=== PATIENT | female | born 1965 | race Caucasian/White ===

== ENCOUNTER 2020-04-15 06:47 | Day surgery (SDC) | payer BC ==
[~2020-04-15 06:47] MED LIST: Lactated Ringers 1,000 ML IV SCH; Sodium Chloride 0.9% 10 ML Syringe FLUSH PRN
[2020-04-15] MEDS ORDERED: Propofol 200 MG/20 ML SDV IV ONE (06:48)
[2020-04-15] MEDS ORDERED: Lidocaine 2% Viscous Solution 15 ML Cup PO ONE (06:48)
--- NOTE | 2020-04-15 08:31 | PCM.HPR ---
H & P Addendum review - H & P Addendum Review Date of Original H & P: 04/01/20 Date Reviewed: 04/15/20 Time Reviewed: 08:00 Patient was Examined: No Changes (Symptoms better, sensation of lump in throat gone)
--- NOTE | 2020-04-15 08:33 | PCM.OPNOTE ---
- General Post-Op/Procedure Note Date of Surgery/Procedure: 04/15/20 Operative Procedure(s): EGD with Bx Findings: Normal Pre Op Diagnosis: GERD Post-Op Diagnosis: Same Anesthesia Technique: MAC Primary Surgeon: Mino Macario Pathology: Esophagus bx's Condition: Good
--- NOTE | 2020-04-15 12:21 | OR ---
DATE OF OPERATION: 04/15/2020 SURGEON: Mino Macario MD PREOPERATIVE DIAGNOSIS: Gastroesophageal reflux disease. POSTOPERATIVE DIAGNOSIS: Normal esophagogastroduodenoscopy. PROCEDURE: Esophagogastroduodenoscopy with biopsies. ANESTHESIA: IV sedation. DESCRIPTION OF PROCEDURE: The patient was brought to the procedure room, where she was placed on her left side and IV sedation administered. Oral bite block was placed and the upper endoscope advanced into the esophagus under direct vision without difficulty. Vocal cords were viewed and were normal. Scope was advanced easily to the third portion of the duodenum. Duodenum and pylorus were normal. Antrum and body of the stomach were normal. Retroflexion is normal. There was no hiatal hernia. Squamocolumnar junction appears normal. There was no evidence of esophagitis, erosions, ulcerations, strictures, or other abnormalities. Because of her symptoms, I did esophageal biopsies from the distal mid and proximal esophagus. Air was removed from the stomach and the scope withdrawn. The patient tolerated the procedure well. I will contact the patient with the pathology report when it returns. I will have her remain on her current antacid regimen of Protonix and Prevacid since this seems to be helping, and her throat symptoms of coughing and sensation of a lump in her throat have resolved. /[id number] BERNARD/AVINASH
== END 2020-04-15 10:31 | disposition home or self-care (01) ==
LOC: FB.SDS 06:47
PROVIDERS: ATTEND Surgery
DX: K21.9 Gastro-esophageal reflux disease without esophagitis (principal); Z87.891 Personal history of nicotine dependence; Z01.812 Encounter for preprocedural laboratory examination; Z20.828 Contact with and (suspected) exposure to other viral communicable diseases
CPT/HCPCS: 00731; 43239; 88305; A9270; J2704; J7120

== ENCOUNTER 2022-01-17 08:08 | Emergency (ER) | payer BC, MEDICAID ==
[2022-01-17] MEDS: Ondansetron 4 MG/2 ML SDV IVPUSH ONE (09:07)
[2022-01-17] MEDS: Ondansetron 4 MG/2 ML SDV ONE (09:10)
[2022-01-17] MEDS: Acetaminophen 500 MG Tab PO STA (09:17)
[2022-01-17] MEDS: Ketorolac 30 MG/ML SDV ONE (09:18)
[2022-01-17] MEDS: Acetaminophen 500 MG Tab ONE (09:19)
[2022-01-17] MEDS: Ketorolac 30 MG/ML SDV IVPUSH ONE (09:19)
[2022-01-17 09:35] LABS: ESTIMATED GFR 74 mL/min (>60)
[2022-01-17] MEDS: Iopamidol 755 Mg/ML 100 ML Bottle IV ONE (10:05)
== END 2022-01-17 11:30 | disposition home or self-care (01) ==
LOC: FB.ED 08:08
DX: N13.2 Hydronephrosis with renal and ureteral calculous obstruction (principal); R11.2 Nausea with vomiting, unspecified; E78.00 Pure hypercholesterolemia, unspecified; K21.9 Gastro-esophageal reflux disease without esophagitis; M19.90 Unspecified osteoarthritis, unspecified site; E66.9 Obesity, unspecified; Z79.899 Other long term (current) drug therapy; Z68.33 Body mass index [BMI] 33.0-33.9, adult
CPT/HCPCS: 36415; 74177; 80053; 81001; 85025; 96374; 96375; 99284; A9270; J1885; J2405; Q9967

== ENCOUNTER 2024-03-16 23:10 | Emergency (ER) | payer MEDICAID ==
[2024-03-16] MEDS ORDERED: Sulfamethoxazole/Trimethoprim 800-160 MG Tab PO ONE (23:11)
[2024-03-16] MEDS ORDERED: Sodium Chloride 0.9% 10 ML Syringe FLUSH PRN (23:16)
[2024-03-16] MEDS: Ketorolac 30 MG/ML SDV IVPUSH ONE (23:25)
[2024-03-16] MEDS: Prochlorperazine 10 MG/2 ML SDV IVPUSH ONE (23:27)
[2024-03-16] MEDS: Morphine 4 MG/ML VIAL IVPUSH ONE (23:32)
[2024-03-16] MEDS: Sodium Chloride 0.9% 1,000 ML IV SCH (23:33)
[2024-03-16 23:39] LABS: MEAN CORPUSCULAR HGB CONC 33.5 g/dL (31.9-34.8)
[2024-03-16 23:41] LABS: BASOPHILS ABSOLUTE AUTO 0.1 x10-3/uL (0.0-0.1); BASOPHILS PERCENT AUTO 1.1 % (0.2-1.5); EOSINOPHILS ABSOLUTE AUTO 0.1 x10-3/uL (0.0-0.8); EOSINOPHILS PERCENT AUTO 1.5 % (0.6-8.1); LYMPHOCYTES ABSOLUTE AUTO 2.3 x10-3/uL (1.0-4.4); LYMPHOCYTES PERCENT AUTO 27.2 % (18.4-52.1); MEAN CORPUSCULAR HEMOGLOBIN 29.7 pg (23.9-33.9); MEAN CORPUSCULAR VOLUME 88.6 fL (76.7-100.5); MEAN PLATELET VOLUME 9.6 fL (7.1-12.4); MONOCYTES ABSOLUTE AUTO 0.7 x10-3/uL (0.3-1.0); NEUTROPHILS ABSOLUTE AUTO 5.3 x10-3/uL (1.5-6.3); NEUTROPHILS PERCENT AUTO 62.2 % (30.8-76.2); PLATELET COUNT,PLT 233 x10(3)uL (151-488); RED BLOOD CELL COUNT 5.07 x10(6)uL (3.60-5.20); RED CELL DISTRIBUTION WIDTH 14.4 % (12.3-16.5); WHITE BLOOD CELL COUNT,WBC 8.5 x10-3/uL (3.0-10.3)
[2024-03-16 23:46] LABS: BLOOD UREA NITROGEN,BUN 15 mg/dL (7-18); BUN/CREATININE RATIO 16.7 (9-20); CALCIUM 9.3 mg/dL (8.6-10.2); CARBON DIOXIDE,CO2 31 mmol/L (21-32); CHLORIDE,CL 101 mmol/L (100-110); CREATININE 0.9 mg/dL (0.55-1.02); ESTIMATED GFR 73 mL/min (>60); GLUCOSE RANDOM 122 mg/dL (80-116); POTASSIUM,K 3.6 mmol/L (3.5-5.3); SODIUM,NA 140 mmol/L (135-145)
[2024-03-17] MEDS ORDERED: Acetaminophen/oxyCODONE 325-5 MG Tab PO STA (00:50)
[2024-03-17] MEDS ORDERED: Tamsulosin 0.4 MG Cap.ER PO ONE (00:50)
[2024-03-17 00:57] LABS: APPEARANCE,URINE SLIGHTLY CLOUDY (CLEAR); BILIRUBIN,URINE NEGATIVE (NEGATIVE); COLOR,URINE YELLOW (YELLOW); GLUCOSE,URINE NORMAL (NORMAL); KETONES,URINE NEGATIVE (NEGATIVE); LEUKOCYTE ESTERASE,URINE SMALL (NEGATIVE); NITRITE,URINE NEGATIVE (NEGATIVE); OCCULT BLOOD,URINE MODERATE (NEGATIVE); PROTEIN,URINE NEGATIVE (NEGATIVE); UROBILINOGEN,URINE NORMAL (NEGATIVE)
[2024-03-17 01:02] LABS: BACTERIA,URINE FEW (NS); MUCUS,URINE FEW (NS); RBC,URINE 0-5 (0-5); SQUAMOUS EPITHELIAL CELLS,UR FEW (NS,R,O)
== END 2024-03-17 01:04 | disposition home or self-care (01) ==
LOC: FB.ED 23:10
DX: N13.2 Hydronephrosis with renal and ureteral calculous obstruction (principal); K21.9 Gastro-esophageal reflux disease without esophagitis; E78.00 Pure hypercholesterolemia, unspecified; E66.9 Obesity, unspecified; F17.210 Nicotine dependence, cigarettes, uncomplicated; Z79.899 Other long term (current) drug therapy
CPT/HCPCS: 36415; 74150; 80048; 81001; 85025; 87086; 87088; 87186; 96361; 96374; 96375; 99284-25; A9270-GY; J0780; J1885; J2270; J7030